=== PATIENT | female | born 1980 | race Caucasian/White ===

== ENCOUNTER 2016-04-23 09:07 | Emergency (ER) | payer BC ==
[2016-04-23 09:24] VITALS: BP 142/77
[2016-04-23] MEDS ORDERED: Acetaminophen 325 MG Tab PO ONE (11:17)
--- NOTE | 2016-04-23 11:19 | EDM.PDOC ---
ED HISTORY OF PRESENT ILLNESS - General Chief Complaint: Chest Pain Stated Complaint: CHEST PAIN Time Seen by Provider: 04/23/16 09:26 Source of Information: Reports: Patient, RN notes reviewed - History of Present Illness INITIAL COMMENTS - FREE TEXT/NARRATIVE: 35-year-old female comes in with intermittent chest pain for the past week or so. This morning the discomfort was more severe of the anterior chest somewhat worse with deep breathing. She has not been sick other than some mild cold symptoms about a week ago. She currently is not coughing. The pain did not radiate to her shoulder or arm. She has concerns because of personal history of diabetes, hypertension, hyperlipidemia along with family history for heart disease and history of smoking "occasionally". no abdominal pain nausea vomiting or diaphoresis - Related Data Allergies/ADRs: Allergies Allergy/AdvReac Type Severity Reaction Status Date / Time No Known Allergies Allergy Verified 04/23/16 09:21 Home Meds: Home Meds Acetaminophen with Codeine [Acetaminophen-Cod #3] 1 tab PO Q4H PRN 04/23/16 [ History] Aspirin 81 mg PO DAILY 04/23/16 [History] Glimepiride [Amaryl] 1 mg PO BID 04/23/16 [History] Insulin Aspart [Novolog] 15 unit SQ TIDMEALS 04/23/16 [History] Insulin Glarg,Human.Rec.Analog [LantUS Solostar] 40 unit SUBCUT BID 04/23/16 [ History] Losartan [Cozaar] 25 mg PO DAILY 04/23/16 [History] Simvastatin [Zocor] 10 mg PO BEDTIME 04/23/16 [History] metFORMIN HCl [Metformin HCl] 1,000 mg PO BID 04/23/16 [History] Past Medical History Cardiovascular History: Reports: High cholesterol, Hypertension Endocrine/Metabolic History: Reports: Diabetes, type II - Past Surgical History GI Surgical History: Reports: Appendectomy, Hernia, abdominal Social & Family History - Tobacco Use Smoking Status *Q: Never Smoker - Caffeine Use Caffeine Use: Reports: Coffee - Recreational Drug Use Recreational Drug Use: No ED ROS GENERAL - Review of Systems Review Of Systems: See Below Constitutional: Denies: fever, chills, diaphoresis HEENT: Denies: Sinus problem, Throat pain Respiratory: Reports: pleuritic chest pain. Denies: shortness of breath, wheezing Cardiovascular: Reports: Chest pain (now almost gone). Denies: Lightheadedness GI/Abdominal: Denies: Abdominal pain, Nausea, Vomiting Musculoskeletal: Denies: neck pain, shoulder pain, arm pain Skin: Reports: no symptoms. Denies: change in color Neurological: Reports: no symptoms ED EXAM, GENERAL - Physical Exam Exam: See Below General Appearance: alert, no apparent distress Eye Exam: bilateral eye: PERRL Throat/Mouth: Normal inspection, Normal oropharynx Head: atraumatic. No: facial swelling Neck: supple, full range of motion. No: lymphadenopathy (L), lymphadenopathy (R ) Respiratory/Chest: no respiratory distress, lungs clear, normal breath sounds, other (there is mild tenderness along the left and right lower sternal border) Cardiovascular: regular rate, rhythm GI/Abdominal: soft, non tender. No: guarding Extremities: normal inspection. No: normal range of motion, leg pain Neurological: alert, oriented, no motor/sensory deficits EKG INTERPRETATION EKG Date: 04/23/16 Rhythm: NSR [place]: LAD-left axis deviation P-wave: present QRS: other (there are Q waves leads III and aVF) ST-T: depressed (T-wave inversion in leadIII) Course - Vital Signs Last Recorded V/S: Last Vital Signs Temp 97.4 F 04/23/16 09:13 Pulse 78 04/23/16 09:13 Resp 14 04/23/16 09:13 BP 142/77 H 04/23/16 09:13 Pulse Ox 100 04/23/16 09:13 - Orders/Labs/Meds Orders: Active Orders 24 hr Category Date Time Status EKG 12 Lead [EKG Documentation Completion] [RC] STAT Care 04/23/16 09:27 Active Chest 1V Frontal [CR] Stat Exams 04/23/16 09:27 Taken Labs: Laboratory Tests 04/23/16 04/23/16 Range/Units 09:40 09:40 WBC 12.64 H (3.98-10.04) K/mm3 RBC 4.80 (3.98-5.22) M/mm3 Hgb 13.3 (11.2-15.7) gm/L Hct 39.7 (34.1-44.9) % MCV 82.7 (79.4-94.8) fl MCH 27.7 (25.6-32.2) pg MCHC 33.5 (32.2-35.5) g/dl RDW Std Deviation 40.1 (36.4-46.3) fL Plt Count 382 H (182-369) K/mm3 MPV 9.9 (9.4-12.3) fl Neutrophils % (Manual) 59 (40-60) % Band Neutrophils % 0 (0-10) % Lymphocytes % (Manual) 41 H (20-40) % Atypical Lymphs % 0 % Monocytes % (Manual) 0 L (2-10) % Eosinophils % (Manual) 0 L (0.7-5.8) % Basophils % (Manual) 0 L (0.1-1.2) Platelet Estimate Adequate RBC Morph Comment Normal Sodium 136 (136-145) mEq/L Potassium 3.7 (3.5-5.1) mEq/L Chloride 99 (98-107) mEq/L Carbon Dioxide 27 (21-32) mEq/L Anion Gap 13.7 (5-15) BUN 6 L (7-18) mg/dL Creatinine 0.7 (0.55-1.02) mg/dL Est Cr Clr Drug Dosing 111.00 mL/min Estimated GFR (MDRD) > 60 (>60) mL/min BUN/Creatinine Ratio 8.6 L (14-18) Glucose 221 H (74-106) mg/dL Calcium 8.9 (8.5-10.1) mg/dL Total Bilirubin 0.2 (0.2-1.0) mg/dL AST 18 (15-37) U/L ALT 36 (14-59) U/L Alkaline Phosphatase 154 H (46-116) U/L Troponin I < 0.017 (0.00-0.056) ng/mL Total Protein 7.8 (6.4-8.2) g/dl Albumin 3.7 (3.4-5.0) g/dl Globulin 4.1 gm/dL Albumin/Globulin Ratio 0.9 L (1-2) Meds: Medications Discontinued Medications Generic Name Dose Route Start Last Admin Trade Name Freq PRN Reason Stop Dose Admin Acetaminophen 975 mg 04/23/16 11:17 04/23/16 11:37 Tylenol PO 04/23/16 11:18 975 mg NOW ONE Administration Departure - Departure Time of Disposition: 11:16 Disposition: Home, Self-Care 01 Condition: fair Clinical Impression: Atypical chest pain, Costochondritis Instructions: Costochondritis, [id number], Nonspecific Chest Pain Referrals: PCP,None [Primary Care Provider] - Forms: ED Department Discharge, Return to Work/School Form Additional Instructions: continue current medications, Tylenol up to 3 times daily as needed for chest wall discomfort, see medical provider or return to ED if symptoms worsening in any way or not resolving over the next 3-5 days as expected, eating healthy diet to the best of your ability, try to exercise as much as your time will allow, avoid heavy lifting for the next 3-5 days - My Orders Last 24 Hours: My Active Orders 04/23/16 09:27 EKG 12 Lead [EKG Documentation Completion] [RC] STAT Chest 1V Frontal [CR] Stat - Assessment/Plan Last 24 Hours: My Active Orders 04/23/16 09:27 EKG 12 Lead [EKG Documentation Completion] [RC] STAT Chest 1V Frontal [CR] Stat
--- NOTE | 2016-04-24 13:04 | CR ---
Chest: Frontal view of the chest was obtained utilizing portable technique. Comparison: No previous study. Heart size is slightly prominent but felt to be accentuated from portable technique. Lungs are clear with no acute infiltrates. Bony structures are grossly intact. Impression: 1. Nothing acute is identified on portable chest x-ray. Diagnostic code #1
== END 2016-04-23 11:50 | disposition home or self-care (01) ==
LOC: JD.ED 09:07
DX: R07.89 Other chest pain (principal); M94.0 Chondrocostal junction syndrome [Tietze]; I10 Essential (primary) hypertension; E78.00 Pure hypercholesterolemia, unspecified; E11.9 Type 2 diabetes mellitus without complications; Z90.49 Acquired absence of other specified parts of digestive tract; Z98.890 Other specified postprocedural states; Z79.82 Long term (current) use of aspirin; Z79.4 Long term (current) use of insulin; Z79.899 Other long term (current) drug therapy
CPT/HCPCS: 36415; 71010; 80053; 84484; 85025; 93005; 99285; A9270; 99283

== ENCOUNTER 2024-05-25 15:48 | Emergency (ER) | payer BC ==
[2024-05-25 16:13] VITALS: BP 152/104; PULSE 86
[2024-05-25] MEDS: Ketorolac 30 MG/ML SDV IVPUSH ONE (17:39)
== END 2024-05-25 19:04 | disposition home or self-care (01) ==
LOC: JD.ED 15:48
DX: R07.89 Other chest pain (principal); I10 Essential (primary) hypertension; E11.9 Type 2 diabetes mellitus without complications; E78.00 Pure hypercholesterolemia, unspecified; Z79.899 Other long term (current) drug therapy; Z79.82 Long term (current) use of aspirin; Z79.4 Long term (current) use of insulin; Z79.84 Long term (current) use of oral hypoglycemic drugs; Z90.49 Acquired absence of other specified parts of digestive tract; W19.XXXA Unspecified fall, initial encounter
CPT/HCPCS: 71101; 93005; 96374; 99283; J1885; 93010